=== PATIENT | male | born 1990 | race Two or more races ===

== ENCOUNTER 2019-11-02 01:43 | Emergency (ER) | payer MEDICAID, OTHER ==
[~2019-11-02] VITALS: Ht 170.2 cm; Wt 77.1 kg
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
--- NOTE | 2019-11-02 02:21 | NUR ---
XRAY AT BEDSIDE
--- NOTE | 2019-11-02 03:30 | NUR ---
EMT AT BEDSIDE FOR KNEE IMMOBILIZOR.
--- NOTE | 2019-11-02 03:38 | NUR ---
Patient discharged to home in stable condition. Written and verbal after care instructions given. Patient verbalizes understanding of instruction. Pt picked up by friend. VSS.
[2019-11-02 03:41] VITALS: BP 136/74
== END 2019-11-02 03:42 | disposition home or self-care (01) ==
LOC: ER 01:44
DX: S82.092A Other fracture of left patella, initial encounter for closed fracture (principal); S82.112A Displaced fracture of left tibial spine, initial encounter for closed fracture; Z98.890 Other specified postprocedural states; Z88.5 Allergy status to narcotic agent; Z89.612 Acquired absence of left leg above knee; V49.49XA Driver injured in collision with other motor vehicles in traffic accident, initial encounter; Y93.89 Activity, other specified; Y92.488 Other paved roadways as the place of occurrence of the external cause; Y99.8 Other external cause status
CPT/HCPCS: 73564-TC; 73590-TC; 73630-TC

== ENCOUNTER 2020-01-15 01:25 | Emergency (ER) | payer MEDICAID ==
[~2020-01-15] VITALS: Ht 170.2 cm; Wt 77.1 kg
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
--- NOTE | 2020-01-15 03:00 | NUR ---
CT BACK, PER DR. MIN, STABLE, NAD
--- NOTE | 2020-01-15 03:10 | NUR ---
PT ON ER OBS. VSS. NAD
[2020-01-15 06:25] VITALS: BP 125/80
--- NOTE | 2020-01-15 06:30 | NUR ---
Patient discharged to home in stable condition. Written and verbal after care instructions given. Patient verbalizes understanding of instruction.
== END 2020-01-15 06:42 | disposition home or self-care (01) ==
LOC: ER 01:33
DX: S09.8XXA Other specified injuries of head, initial encounter (principal); F10.129 Alcohol abuse with intoxication, unspecified; Z98.890 Other specified postprocedural states; Z88.6 Allergy status to analgesic agent; W18.39XA Other fall on same level, initial encounter; Y93.89 Activity, other specified; Y92.89 Other specified places as the place of occurrence of the external cause; Y99.8 Other external cause status; Y90.9 Presence of alcohol in blood, level not specified
CPT/HCPCS: 70450-TC

== ENCOUNTER 2021-12-30 22:51 | Emergency (ER) | payer MEDICAID, OTHER ==
[~2021-12-30] VITALS: Ht 170.2 cm; Wt 84.4 kg
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
[2021-12-30] MEDS ORDERED: ONDANSETRON HCL/PF 4 MG/2 ML VIAL ONE (23:12)
[2021-12-30] MEDS ORDERED: oxyCODONE/APAP (5/325 MG) 1 UDTAB TABLET ONE (23:13)
--- NOTE | 2021-12-30 23:24 | NUR ---
20G ESTABLISHED AT . BLOOD DRAWN AND SENT TO LAB
--- NOTE | 2021-12-30 23:27 | NUR ---
URINE COLLECTED AND SENT TO LAB
[2021-12-30] MEDS ORDERED: ONDANSETRON HCL/PF 4 MG/2 ML VIAL IVP ONE (23:30)
[2021-12-30] MEDS ORDERED: oxyCODONE/APAP (5/325 MG) 1 UDTAB TABLET PO ONE (23:30)
[2021-12-30] MEDS ORDERED: IV NS 0.9% 500 ML BAG IV ONE (23:30)
--- NOTE | 2021-12-30 23:30 | NUR ---
REGISTERED NURSE CARDIAC AT PT'S BEDSIDE
--- NOTE | 2021-12-30 23:37 | NUR ---
PT TAKEN TO CT VIA SHASHA
[2021-12-30 23:39] LABS: BILIRUBIN,URINE NEGATIVE (NEGATIVE); COLOR,URINE YELLOW (YELLOW); LEUKOCYTE ESTERASE ,URINE NEGATIVE (NEGATIVE); NITRITE, URINE NEGATIVE (NEGATIVE); PROTEIN,URINE NEGATIVE (NEGATIVE); UGLUCOSE NEGATIVE (NEGATIVE); UROBILINOGEN,URINE 0.2 EU/dL (0.2)
--- NOTE | 2021-12-30 23:57 | NUR ---
PT RETURNED TO ER BED [address]
--- NOTE | 2021-12-30 23:57 | NUR ---
RERTURNED FROM CT
[2021-12-30 23:58] LABS: ALBUMIN 3.3 g/dL (3.4-5.0); BILIRUBIN,TOTAL 0.1 mg/dL (0.2-1.0); CALCIUM, SERUM 8.5 mg/dL (8.5-10.1); CREATININE 0.8 mg/dL (0.6-1.3); POTASSIUM 3.8 mmol/L (3.5-5.1); TOTAL PROTEIN, SERUM 8.2 g/dL (6.4-8.2)
--- NOTE | 2021-12-31 00:09 | NUR ---
NETWORK SYSTEMS ADMINISTRATOR AT PT'S BEDSIDE
[2021-12-31 00:35] LABS: BASOPHILS # (AUTO) 0.1 K/uL (0.0-0.2); BASOPHILS % (AUTO) 0.7 % (0.0-2.0); EOSINOPHILS % (AUTO) 1.7 % (0.0-6.0); HEMATOCRIT 35 % (39-51); HEMOGLOBIN 10.9 g/dL (13.5-17.5); LYMPHOCYTES # (AUTO) 2.9 K/uL (0.8-4.8); MEAN CORPUSCULAR HGB CONC 31 g/dl (31.0-36.0); MEAN CORPUSCULAR VOLUME 81 fL (80-96); MONOCYTES # (AUTO) 0.7 K/uL (0.1-1.30); MONOCYTES % (AUTO) 5.8 % (2.0-12.0); NEUTROPHILS # (AUTO) 8.3 K/uL (1.8-8.9); NEUTROPHILS % (AUTO) 67.8 % (43.0-81.0); PLATELET COUNT (AUTO) 406 K/uL (150-450); RED BLOOD CELL COUNT(AUTO) 4.27 MIL/uL (4.5-6.0); WHITE BLOOD COUNT (AUTO) 12.3 K/uL (4.3-11.0)
--- NOTE | 2021-12-31 01:13 | NUR ---
SPOKE WITH NURSING SUP AT [facility], FAX [phone] RELEASE HEALTH INFO
--- NOTE | 2021-12-31 03:06 | NUR ---
CALLED [facility] TO F/U WITH CT & XRAY REPORT
--- NOTE | 2021-12-31 03:45 | NUR ---
CALLED [facility] TO F/U WITH CT & XRAY REPORT; STATED THEY DONT HAVE ORDER & REQUISITION NUMBER. NOTIFIED RADIOLOGY. WILL F/U WITH [facility].
--- NOTE | 2021-12-31 04:04 | NUR ---
Patient AMA to home via W/C with friend. Written and verbal after care instructions given. Patient verbalizes understanding of instruction. Patient does not wish to proceed with medical care recommended by Dr. Dumont. Patient given information related to possible complications, up to and including , which could occur as a result of leaving the hospital at this time. Patient verbalizes understanding of risks involved due to leaving against medical advice. Patient has signed AMA form. IV removed. Catheter intact and site benign. Pressure and 4x4 applied to site. No bleeding noted.
[2021-12-31 04:14] VITALS: BP 122/71
== END 2021-12-31 04:04 | disposition left against medical advice (07) ==
LOC: ER 22:52
DX: R10.9 Unspecified abdominal pain (principal); Z98.890 Other specified postprocedural states; Z88.6 Allergy status to analgesic agent
CPT/HCPCS: 99285; 73700; 96374; 71045; 96361; 74176; 85025; 80048; 83690; 80076; 81003; 36415; 85730; J2405; J7040